=== PATIENT | female | born 1965 | race Hispanic/Latino ===

== ENCOUNTER → 2020-05-30 | Day surgery (SDC) | payer BC, OTHER ==
[2020-05-27 10:38] LABS: ANION GAP 18.2 mmol/L (8-16); BLOOD UREA NITROGEN 14 mg/dL (7-26); BUN/CREATININE RATIO 20 (6-25); CALCIUM 8.8 mg/dL (8.4-10.2); CARBON DIOXIDE 21 mmol/L (22-29); CHLORIDE 105 mmol/L (98-107); CREATININE, SERUM 0.71 mg/dL (0.57-1.11); EST GLOMERULAR FILTRATION RATE > 60 ML/MIN (60-); GLUCOSE 132 mg/dL (74-118); POTASSIUM 4.2 mmol/L (3.5-5.1); SODIUM 140 mmol/L (136-145)
[~2020-05-30] MED LIST: CEFTRIAXONE SOD 1 GM/NS 50 ML 50 ML IV ONE; CRESTOR10 MG PO; DEXAMETHASONE SOD PHOS INJ 4 MG/ML VIAL ONE; FENTANYL CITRATE/PF 100MCG/2 ML INJ ONE; GLIPIZIDE ER5 MG PO; IBUPROFEN400 MG PO; IOPAMIDOL 300MG/ML 50ML INFUS..BTL IV ONE; LIDOCAINE HCL 2% LOCAL INJ 5 ML SDV VIAL INJ ONE; METOPROLOL SUCC25 MG PO; MIDAZOLAM HCL 2 MG/2 ML VIAL ONE; MONTELUKAST SOD10 MG PO; NIFEDIPINE ER30 M1 PO; ONDANSETRON HCL INJ 2MG/ML 2ML 2 MG/ML VIAL ONE; PROPOFOL IV EMULSION 10 MG/ML 20 ML VIAL ONE; SEVOFLURANE INHAL SOLN 250 ML PEN BTL ONE; TRADJENTA5 MG PO
--- NOTE | 2020-05-30 07:20 | NUR ---
SPIRITUAL CARE - Pre-Surgery Assessment: Pt in bed. Pt reported supportive attention from family and friends. Intervention: Machine Boss provided pastoral presence, hospitality, and sympathetic listening. 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 Outcome: Pt expressed appreciation for visit. No need for follow up indicated at this time. JOSE ANTONIO Null Spiritual Care Department O: [phone]
[2020-05-30 09:45] VITALS: BP 111/57
--- NOTE | 2020-06-02 09:07 | Operative Report ---
DATE OF PROCEDURE: 05/30/2020 SURGEON: Zachary Nelson MD PREOPERATIVE DIAGNOSES: 1. Multiple chronic urinary tract infections. 2. Clinical signs and symptoms of interstitial cystitis. POSTOPERATIVE DIAGNOSES: 1. Multiple chronic urinary tract infections. 2. Clinical signs and symptoms of interstitial cystitis. PROCEDURES: 1. Cystourethroscopy with hydrodistention (entirely separate procedure for clinical signs of interstitial cystitis). 2. Cystourethroscopy with left ureteral catheterization and left retrograde pyelogram (separate procedure for multiple chronic urinary tract infections). 3. Cystourethroscopy with right ureter catheterization and right retrograde pyelogram (separate procedure for multiple chronic urinary tract infections). 4. Supervision of fluoroscopy. 5. Interpretation of retrograde pyelography. ANESTHESIA: General. ESTIMATED BLOOD LOSS: Minimal. COMPLICATIONS: None. INDICATIONS: Ms. Lomas is a very pleasant 54-year-old female with a history of multiple chronic urinary tract infections. She and I had a long discussion of alternatives, risks, and benefits of doing nothing, cystoscopy, IVP, retrograde pyelogram, renal ultrasound. She voiced understanding of the options, alternatives, the risks and benefits and she elected to proceed. PROCEDURE IN DETAIL: After informed consent was obtained, the patient was taken to the operative suite, placed supine on the operating table, underwent general anesthesia by Anesthesia Service, placed in the dorsal lithotomy position and sterilely prepped and draped for cystoscopy. A 21-Monegasque cystoscope was inserted per urethra, normal urethra was noted. A grade 2 cystocele noted bilaterally. Panendoscopy of the bladder revealed no tumors and no stones. Both ureteral orifices were in normal anatomic location and position and were seen to efflux clear urine. Hydrodistention was performed with a capacity of only 700 mL. No glomerulations and no Hunner's ulcers. Bilateral retrograde pyelogram was performed, which were normal. The bladder was then drained the patient was awakened from anesthesia and transported to recovery room in excellent condition. Supervision of fluoroscopy and interpretation of retrograde pyelography: I was present for the entire procedure and supervised the use of fluoroscopy. There was no radiologist present. Attention was turned towards the left and right ureters catheters, which was catheterized with an 8-Monegasque cone-tipped catheter in retrograde fashion. Contrast was injected revealing delicate ureter and delicate pelvocaliceal system. No evidence of filling defects. No evidence of hydronephrosis. IMPRESSION: Normal retrograde pyelograms. MD SHABBIR Jules/RICARDOL /[id number]
== END | disposition home or self-care (01) ==
LOC: OR 06:03
PROVIDERS: ATTEND Urology
DX: N39.0 Urinary tract infection, site not specified (principal); N81.10 Cystocele, unspecified; N20.0 Calculus of kidney; R35.1 Nocturia; E11.9 Type 2 diabetes mellitus without complications; I10 Essential (primary) hypertension; F41.9 Anxiety disorder, unspecified; Z88.8 Allergy status to other drugs, medicaments and biological substances; Z01.810 Encounter for preprocedural cardiovascular examination; Z01.812 Encounter for preprocedural laboratory examination; Z11.59 Encounter for screening for other viral diseases; Z79.84 Long term (current) use of oral hypoglycemic drugs; Z68.30 Body mass index [BMI] 30.0-30.9, adult
CPT/HCPCS: 36415 ×2; 52005; 74420; 80048; 82948; 93005; C1758; J0696; J1100; J2001; J2250; J2405; J2704; J3010; Q9967; U0002